=== PATIENT | female | born 1985 | race African-American/Black ===

== ENCOUNTER 2025-03-24 20:57 | Emergency (ER) | payer BC, SELFPAY ==
[2025-03-24 20:57] VITALS: BMI 32.9
[2025-03-24 21:07] VITALS: BP 137/86
--- NOTE | 2025-03-24 23:26 | ED.GENMED ---
History of Present Illness
General
Chief Complaint: Rabies
Source: patient
Exam Limitations: none
Time Seen by Provider: 03/24/25 23:03
Nursing documentation reviewed up to this point in time: agreed with
History of Present Illness
History of Present Illness:
39 y/o F
no pmh
found bat in her bedroom alive 2 am
it flying into the ceiling fan and collected it
no known contact
unknown if bit
requestin rabies
Phy Exam
Physical Exam
Physical Exam:
GENERAL: Alert , in no apparent distress
CARDIAC: Regular rate and rhythm .
LUNGS: Clear breath sounds bilaterally, no acute respiratory distress, no wheezes/rales/rhonchi
NEUROLOGICAL: Alert and oriented, no focal neuro deficits
PSYCH: Normal and appropriate interaction.
Course
Orders/Labs/Results
Orders:
Orders
03/24/25 23:37
Rabies Immune Globulin/Pf [HyperRAB] 1,962 unit IM NOW STA
03/24/25 23:45
Rabies Vaccine (Pcec)/Pf [Rabavert Rabies Vacc W-Diluent] 2.5 unit IM .ONCE ONE
Vital Signs
Initial and Last Documented VS:
Initial Vital Signs
Temp Pulse Resp BP Pulse Ox
36.7 C 80 18 137/86 100
03/24/25 21:07 03/24/25 21:07 03/24/25 21:07 03/24/25 21:07 03/24/25 21:07
Last Documented Vital Signs
Temp Pulse Resp BP Pulse Ox
36.7 C 80 18 137/86 100
03/24/25 21:07 03/24/25 21:07 03/24/25 21:07 03/24/25 21:07 03/24/25 23:26
MDM/Problems Addressed
Differential Diagnosis Includes:
RABIES
MDM/Problems Addressed:
39 y/o F
no pmh
here after finding bat in bedroom 2 am
it was alive and flying into the fan
no complaints
requesting rabies series
*Pulse Oximetry
SaO2: 100
Patient hypoxic: no (100)
*Critical Care Note
Total Time (30-74mins, 75-104mins- exclusive of procedures): Not Applicable
ED Attending Note
-
Portions of this chart may have been created with voice recognition software.� Occasional wrong word or��sound alike� substitutions may have occurred due to the inherent limitations of voice recognition software.
Discharge Plan
Departure
Patient Disposition: Home (Routine Discharge)
Date of Disposition: 03/24/25
Time of Disposition: 23:42
Patient with high blood pressure during this ER visit?: No
Condition: Fair
Covid-19: Not Applicable
Discharge Problem:
Need for prophylactic vaccination against rabies
Instructions: Rabies
Prescriptions:
New
rabies vacc,human diploid (PF) 2.5 unit recon soln
See Rx Instructions .ROUTE .COMPLEX Qty: 3 0RF
Rx Instructions:
1 mL intramuscularly ON 03/27, 03/31 AND 04/07
Stand Alone Forms: Rabies Vaccine Post Exp Dosing
Activity Restrictions/Additional Instructions:
RETURN TO THE [facility] FOR YOUR VACCINES
03/27, 03/31, 04/07
Interventions
Interventions:
*Risk Screen - Suicide Last Done: 03/24/25 21:09
*General Assessment Last Done: 03/24/25 21:09
*Neglect/Abuse Screening Last Done: 03/24/25 21:09
*ED- Fall Risk Assessment Last Done: 03/24/25 23:34
Discharge Date and Time
Print Language: ARABIC
[2025-03-24] MEDS: RABAVERT RABIES VACC W-DILUENT 2.5 UNIT IM (23:47)
== END 2025-03-25 00:24 | disposition home or self-care (01) ==
LOC: EMR 20:57
PROVIDERS: EMERGENCY PHYSICIAN Emergency Medicine; FAMILY PHYSICIAN Internal Medicine
DX: Z20.3 Contact with and (suspected) exposure to rabies (principal); Z23 Encounter for immunization; Z29.14 Encounter for prophylactic rabies immune globulin
CPT/HCPCS: 90471; 96372; 99284; 90375; 90675

== ENCOUNTER 2025-04-07 15:02 | Outpatient (RCR) | payer BC, SELFPAY ==
[2025-03-27] MEDS: RABAVERT RABIES VACC W-DILUENT 2.5 UNIT IM (14:39)
[2025-03-27 14:57] VITALS: BP 111/66
[2025-03-31 08:01] VITALS: BP 107/64
[2025-03-31] MEDS: RABAVERT RABIES VACC W-DILUENT 2.5 UNIT IM (08:12)
[2025-04-07 15:13] VITALS: BP 120/69
[2025-04-07] MEDS: RABAVERT RABIES VACC W-DILUENT 2.5 UNIT IM (15:20)
== END 2025-04-08 09:37 | disposition home or self-care (01) ==
LOC: OID 15:02
PROVIDERS: ATTENDING PHYSICIAN Emergency Medicine
DX: Z20.3 Contact with and (suspected) exposure to rabies (principal); Z23 Encounter for immunization
CPT/HCPCS: 90471; 90675